=== PATIENT | male | born 1945 | race Caucasian/White ===

== ENCOUNTER 2016-06-13 07:52 | Day surgery (SDC) | payer MEDICARE ==
[~2016-06-13] VITALS: Ht 175.3 cm; Wt 74.8 kg
[~2016-06-13 07:52] MED LIST: 0.9% Sodium Chloride 1,000 ML IV PRN; HYDR25TA4 PO; Sodium Chloride LOK Flush 10 mL Syringe IV PRN; fentaNYL-PF 50 mCg/mL 2 mL Inj IVPUSH PRN
[2016-06-13 08:29] VITALS: BP 140/88; PULSE 56; RESP 16; O2SAT 96
[2016-06-13] MEDS ORDERED: OMEP20CA11 PO (08:38)
[2016-06-13] MEDS ORDERED: LOVA40TA PO (08:38)
[2016-06-13] MEDS ORDERED: LOSA50TA37 PO (08:38)
[2016-06-13] MEDS ORDERED: NORT10CA PO (08:38)
[2016-06-13 09:15] VITALS: BP 137/81; PULSE 54; RESP 16; O2SAT 95
[2016-06-13 09:25] VITALS: BP 124/77; PULSE 53; RESP 16; O2SAT 99
--- NOTE | 2016-06-13 21:27 | ENDO ---
[address] [address] ENDOSCOPY PROCEDURE PATIENT: LACEY MOSQUERA I : 1945 MR#: [id number] ADMIT: 06/13/2016 JOB ID: [id number] PRIMARY PROVIDER: Dank Hathaway MD PROCEDURE: Colonoscopy with hot snare polypectomy. INDICATIONS: A 70-year-old male with a personal history of colon polyps. EQUIPMENT: PCF H 190 DL. SEDATION: 2 mg Versed and 50 mcg fentanyl. COMPLICATIONS: None identified. BOWEL PREPARATION: Fair. PROCEDURE IN DETAIL: After the risks and benefits were explained, written and verbal informed consent was obtained. The patient was brought into the endoscopy suite and placed into the left lateral decubitus position. Sedation was achieved as above. A digital rectal examination accomplished. This did not elicit any obvious anorectal pathology. The scope was introduced into the rectum and advanced under direct visualization to the cecum as identified by the appendiceal orifice and ileocecal valve. The scope was slowly withdrawn to carefully examine the mucosa for any defects or lesions. Retroflexed views were accomplished in the rectum. The colon was decompressed. The scope removed from the patient who tolerated the procedure well. FINDINGS: Some diverticulosis was encountered. The patient had a fair bowel prep. There was a polyp in the transverse removed with hot snare. This measured out to be about 5 mm or so in greatest dimension. Retroflexed views from within the rectum disclosed mild internal hemorrhoids. ENDOSCOPIC DIAGNOSES: 1. Colon polyps. 2. Diverticulosis. 3. Hemorrhoids. RECOMMENDATIONS: 1. Await histopathology. 2. Repeat colonoscopy in five years.
--- NOTE | 2016-06-15 10:52 | PATH ---
SURGICAL PATHOLOGY Attending Physician:Redd Whyte CASE STATUS: Signed Out PATIENT NAME: LACEY MOSQUERA I. PID: [id number] : 1945 DATE COLLECTED:06/13/2016 20:30 SPECIMEN: Colon, Biopsy CLINICAL HISTORY: PERSONAL HISTORY OF POLYPS 1). TRANSVERSE COLON POLYP FINAL DIAGNOSIS: Transverse Colon Polyp: Polypoid-shaped fragment of colon mucosa associated with prominent edema of the lamina propria. Negative for dysplasia and malignancy. ICD10 K63.5 GROSS DESCRIPTION: The specimen is received in one formalin filled container labeled with the patient's name, sublabeled "transverse colon polyp" and consists of a 0.2 x 0.2 x 0.2 CM portion of tissue which is entirely submitted in one cassette. 06/13/2016 [facility] ICD-9 CODES: CPT CODES: 1: 84659 Electronically Signed Out Rahat Benjamin MD [facility] Pathology [facility] [address] [facility], [place] [address] Technical component performed at [facility], [facility] [address], [place], [address]
== END 2016-06-13 23:59 | disposition home or self-care (01) ==
LOC: END 07:52
PROVIDERS: ATTEND Internal Medicine Gastroenterology
DX: Z86.010 Personal history of colon polyps (principal); K63.5 Polyp of colon; K57.30 Diverticulosis of large intestine without perforation or abscess without bleeding; K64.8 Other hemorrhoids; I10 Essential (primary) hypertension
CPT/HCPCS: 45385; 99153; G0500; J2250; J7030